=== PATIENT | female | born 1980 | race Caucasian/White ===

== ENCOUNTER 2022-05-12 04:17 | Day surgery (SDC) | payer OTHER ==
[2022-05-09 14:51] VITALS: BMI 32.1
[2022-05-12] MEDS ORDERED: PROPOFOL 20 ML ONE ×3 (14:55)
[2022-05-12] MEDS ORDERED: ceFAZolin SODIUM 1 GM VIAL ONE (15:03)
[2022-05-12] MEDS ORDERED: ceFAZolin SODIUM 1 GM VIAL IVPB ONE (15:12)
[2022-05-12] MEDS ORDERED: KETOROLAC TROMETHAMINE 30 MG/1 ML VIAL ONE (15:24)
[2022-05-12] MEDS ORDERED: ONDANSETRON 4 MG/2 ML VIAL ONE (15:24)
[2022-05-12] MEDS ORDERED: ONDANSETRON 4 MG/2 ML VIAL IVPUSH PRN (15:49)
[2022-05-12] MEDS ORDERED: oxyCODONE HCL 5 MG TABLET PO PRN (15:49)
[2022-05-12] MEDS ORDERED: ACETAMINOPHEN 325 MG TABLET (FP) PO PRN (15:49)
[2022-05-12] MEDS ORDERED: LACTATED RINGERS SOLUTION 1,000 ML IV SCH (16:00)
[2022-05-12 19:00] VITALS: BP 120/70; PULSE 64; TEMP 97.9
== END 2022-05-12 18:45 | disposition home or self-care (01) ==
LOC: JASU-SURG 04:17
PROVIDERS: ATTEND Obstetrics & Gynecology
PROC: 10A07Z6 Abortion of Products of Conception, Vacuum, Via Natural or Artificial Opening (ICD-10-PCS; principal; 2022-05-12 14:30)
DX: O03.4 Incomplete spontaneous abortion without complication (principal)
CPT/HCPCS: 76998-TC; 81025; 88305-TC; 94760

== ENCOUNTER 2023-05-11 20:20 | Inpatient (IN) | payer OTHER ==
[2023-05-11] MEDS ORDERED: BETAMET ACET/BETAMET NA PH 30 MG/5 ML VIAL ONE (21:07)
[2023-05-11] MEDS ORDERED: BETAMET ACET/BETAMET NA PH 30 MG/5 ML VIAL IM ONE (21:15)
[2023-05-11] MEDS: ELECTROLYTE-148 SOLN 1,000 ML IV SCH (23:35)
[2023-05-12 00:27] VITALS: BMI 35.4
[2023-05-12 00:48] LABS: HEMATOCRIT 31.6 % (32.4-45.2); MCHC 31.4 g/dl (32.0-36.0); MEAN CELL VOLUME 85.9 fl (80-96); MEAN PLT VOLUME 9.6 fl (7.5-11.1); PLATELET COUNT 306 10^3/uL (134-434); RBC 3.68 M/mm3 (3.60-5.2); RDW 14.4 % (11.6-15.6); WHITE BLOOD COUNT 15.1 K/mm3 (4.0-10.0)
[2023-05-12 01:42] LABS: POTASSIUM 3.9 mmol/L (3.5-5.1)
[2023-05-12 01:44] LABS: CALCIUM 8.6 mg/dL (8.5-10.1)
[2023-05-12 01:45] LABS: BLOOD UREA NITROGEN 8.6 mg/dL (7-18)
[2023-05-12 01:48] LABS: CREATININE 0.6 mg/dL (0.55-1.3)
[2023-05-12 03:19] LABS: ANISOCYTOSIS 1+; MACROCYTOSIS 1+
[2023-05-12] MEDS ORDERED: CITRIC ACID/SODIUM CITRATE 30 ML UNIT-DOSE CUP PO ONE (04:00)
[2023-05-12] MEDS ORDERED: ONDANSETRON 4 MG/2 ML VIAL IVPUSH PRN (04:16)
[2023-05-12] MEDS ORDERED: IBUPROFEN 600 MG TABLET (FP) PO PRN ×2 (04:16→06:09)
[2023-05-12] MEDS ORDERED: morphine SULFATE/PF 1 MG/2 ML (2cc Syringe - QUVA) EP ONE (04:16)
[2023-05-12] MEDS ORDERED: SODIUM CHLORIDE 0.9% P/F 10 ML VIAL IJ ONE ×2 (04:22→04:33)
[2023-05-12] MEDS ORDERED: ceFAZolin SODIUM 1 GM VIAL ONE (04:22)
[2023-05-12] MEDS ORDERED: PHENYLEPHRINE HCL 10 MG/1 ML SINGLE DOSE VIAL ONE (04:24)
[2023-05-12] MEDS ORDERED: OXYTOCIN 10 UNITS/ML VIAL ONE ×4 (04:48→05:25)
[2023-05-12] MEDS ORDERED: METOCLOPRAMIDE HCL INJECTION 10 MG/2 ML VIAL ONE (04:53)
[2023-05-12] MEDS ORDERED: ONDANSETRON 4 MG/2 ML VIAL ONE (04:53)
[2023-05-12] MEDS ORDERED: OXYTOCIN 20 UNITS in 0.9% NS 20 UNIT/1,000 ML INFUS.BAG IV ONE ×2 (05:08→05:40)
[2023-05-12] MEDS ORDERED: FENTANYL CITRATE/PF 50 MCG/ML VIAL ONE ×2 (05:25→05:36)
[2023-05-12] MEDS ORDERED: MIDAZOLAM HCL 2 MG/2 ML SINGLE DOSE VIAL ONE ×2 (05:25→05:40)
[2023-05-12] MEDS: OXYTOCIN 20 UNITS in 0.9% NS 20 UNIT/1,000 ML INFUS.BAG IV SCH ×2 (05:37→12:39)
[2023-05-12 06:04] LABS: HIV INTERPRETATION NEGATIVE (NEGATIVE)
[2023-05-12] MEDS ORDERED: ACETAMINOPHEN 325 MG TABLET (FP) PO PRN (06:09)
[2023-05-12] MEDS ORDERED: METHYLERGONOVINE MALEATE 0.2 MG/1 ML AMP IM PRN (06:09)
[2023-05-12] MEDS ORDERED: ACETAMINOPHEN 1000 MG/100 ML BAG IVPB PRN (06:11)
[2023-05-12 07:11] LABS: CORD BASE EXCESS -1.5 mmol/L (0-2); CORD PCO2 38.4 mmHg (30-78); CORD pH 7.395 (7.14-7.44)
[2023-05-12 08:17] LABS: INR 1.02 (0.83-1.09); PROTHROMBIN TIME (PATIENT) 11.8 SEC (9.7-13.0)
[2023-05-12 08:20] LABS: HEMATOCRIT 35.3 % (32.4-45.2); HEMOGLOBIN 11.1 GM/dL (10.7-15.3); MCHC 31.3 g/dl (32.0-36.0); MEAN CELL VOLUME 86.4 fl (80-96); MEAN PLT VOLUME 9.7 fl (7.5-11.1); PLATELET COUNT 302 10^3/uL (134-434); RBC 4.09 M/mm3 (3.60-5.2); RDW 14.5 % (11.6-15.6); WHITE BLOOD COUNT 18.5 K/mm3 (4.0-10.0)
[2023-05-12 08:27] LABS: POTASSIUM 4.6 mmol/L (3.5-5.1)
[2023-05-12 08:30] LABS: ALBUMIN 2.4 g/dl (3.4-5.0); BLOOD UREA NITROGEN 6.5 mg/dL (7-18)
[2023-05-12 08:33] LABS: CREATININE 0.6 mg/dL (0.55-1.3)
[2023-05-12 08:34] LABS: BILIRUBIN,TOTAL 0.2 mg/dL (0.2-1)
[2023-05-12 10:44] LABS: ANISOCYTOSIS 0; MACROCYTOSIS 0; OVALOCYTE 1+
[2023-05-12 14:02] LABS: HEMATOCRIT 31.7 % (32.4-45.2); MCH 27.1 pg (25.7-33.7); MCHC 31.6 g/dl (32.0-36.0); MEAN CELL VOLUME 85.7 fl (80-96); MEAN PLT VOLUME 9.6 fl (7.5-11.1); PLATELET COUNT 301 10^3/uL (134-434); RDW 14.5 % (11.6-15.6); WHITE BLOOD COUNT 22.5 K/mm3 (4.0-10.0)
[2023-05-12 14:31] LABS: ANISOCYTOSIS 0; MACROCYTOSIS 0
[2023-05-12] MEDS ORDERED: oxyCODONE HCL 5 MG TABLET PO PRN ×2 (18:10)
[2023-05-13] MEDS ORDERED: BISACODYL 10 MG SUPP.RECT RC PRN (06:10)
[2023-05-13] MEDS: SIMETHICONE 80 MG TAB.CHEW (FP) PO PRN ×3 (06:40→19:48)
[2023-05-13] MEDS: ACETAMINOPHEN 325 MG TABLET (FP) PO PRN ×2 (06:40→12:11)
[2023-05-13 07:51] LABS: HEMATOCRIT 26.8 % (32.4-45.2); HEMOGLOBIN 8.5 GM/dL (10.7-15.3); MCH 26.9 pg (25.7-33.7); MCHC 31.6 g/dl (32.0-36.0); MEAN CELL VOLUME 85.1 fl (80-96); MEAN PLT VOLUME 9.3 fl (7.5-11.1); PLATELET COUNT 262 10^3/uL (134-434); RBC 3.15 M/mm3 (3.60-5.2); RDW 14.8 % (11.6-15.6); WHITE BLOOD COUNT 14.2 K/mm3 (4.0-10.0)
[2023-05-13 08:54] LABS: ANISOCYTOSIS 0; HELMET CELLS 0; HOWELL-JOLLY BODIES 0; MACROCYTOSIS 0; OVALOCYTE 0; ROULEAU 0; SICKELED CELLS 0; TARGET CELLS 0; TEAR DROP CELLS 0; TOXIC GRANULATION 0
[2023-05-13] MEDS: ENOXAPARIN NA (PORCINE) 40 MG/0.4 ML DISP.SYRIN SQ SCH (16:13)
[2023-05-13] MEDS: IBUPROFEN 600 MG TABLET (FP) PO PRN (19:48)
[2023-05-13] MEDS: OXYTOCIN 20 UNITS in 0.9% NS 20 UNIT/1,000 ML INFUS.BAG IV SCH (21:24)
[2023-05-14] MEDS: ACETAMINOPHEN 325 MG TABLET (FP) PO PRN ×2 (10:29→16:06)
[2023-05-14] MEDS: SIMETHICONE 80 MG TAB.CHEW (FP) PO PRN ×2 (10:29→16:07)
[2023-05-14] MEDS: ENOXAPARIN NA (PORCINE) 40 MG/0.4 ML DISP.SYRIN SQ SCH (10:31)
[2023-05-14] MEDS: FERROUS SO4 325 MG TABLET (FP) PO SCH (18:16)
[2023-05-14] MEDS: ELECTROLYTE-148 SOLN 1,000 ML IV SCH ×2 (19:11→19:13)
[2023-05-15] MEDS: ACETAMINOPHEN 325 MG TABLET (FP) PO PRN (05:05)
[2023-05-15] MEDS: SIMETHICONE 80 MG TAB.CHEW (FP) PO PRN (05:05)
[2023-05-15 07:26] LABS: HEMATOCRIT 25.4 % (32.4-45.2); HEMOGLOBIN 8.4 GM/dL (10.7-15.3); MCH 28.5 pg (25.7-33.7); MCHC 33.2 g/dl (32.0-36.0); PLATELET COUNT 247 10^3/uL (134-434); RBC 2.95 M/mm3 (3.60-5.2); RDW 14.6 % (11.6-15.6)
[2023-05-15 08:51] VITALS: BP 139/80; PULSE 81; RESP 20; TEMP 98.4
[2023-05-15 09:19] LABS: ANISOCYTOSIS 2+; MACROCYTOSIS 0
[2023-05-15] MEDS ORDERED: FERROUS SO4 325 MG TABLET (FP) PO SCH (10:00)
[2023-05-15] MEDS: ENOXAPARIN NA (PORCINE) 40 MG/0.4 ML DISP.SYRIN SQ SCH (10:17)
[2023-05-15] MEDS: FERROUS SO4 325 MG TABLET (FP) PO SCH (10:18)
[2023-05-15] MEDS: IBUPROFEN 600 MG TABLET (FP) PO PRN (11:03)
== END 2023-05-15 12:50 | disposition home or self-care (01) | DRG 786 ==
LOC: JDEL 20:20 → JLDR 22:40 → OBSVTOIN 05-12 04:00 → J3W 05-12 09:00
PROVIDERS: ADMIT Obstetrics & Gynecology; ATTEND Obstetrics & Gynecology
PROC: 10D00Z1 Extraction of Products of Conception, Low, Open Approach (ICD-10-PCS; principal; 2023-05-12)
DX: O44.13 Complete placenta previa with hemorrhage, third trimester (principal); O60.14X0 Preterm labor third trimester with preterm delivery third trimester, not applicable or unspecified; O36.8330 Maternal care for abnormalities of the fetal heart rate or rhythm, third trimester, not applicable or unspecified; O99.013 Anemia complicating pregnancy, third trimester; O99.214 Obesity complicating childbirth; Z3A.30 30 weeks gestation of pregnancy; Z37.0 Single live birth
CPT/HCPCS: 36415; 36600; 76819-TC; 80048; 80053; 82803; 85025; 85362; 85384; 85610; 85730; 86706; 86780; 86900; 86922; 87086; 87186; 87340; 87389; 88307-TC; 96372; G0378